=== PATIENT | male | born 1985 | race Caucasian/White ===

== ENCOUNTER 2017-02-15 18:53 | Inpatient (IN) | payer OTHER ==
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
--- NOTE | ~2017-02-15 | PN ---
Unit #: [id number] #: [id number] Patient: LILIANA TORRES [id number] [facility] [address] [place] [address] [id number] I MR#: [id number] NAME: LILIANA TORRES ROOM: [facility] Age: 31 Sex: M Admission Date: 02/15/2017 : 1985 Attending Physician: Omar Enamorado M.D. Admitting Physician: Omar Enamorado M.D. Primary Care Physician: Primary Care Physician No KERRYCE PROGRESS NOTES DATE 02/17/2017 DISCUSSION Liliana continues to have active withdrawal symptoms today. These include sweating, cramping and nausea. He is alert and fully oriented. His memory and concentration are fair to good. His thought processes are goal directed with no active psychosis or suicidal ideation. ASSESSMENT Opiate dependence. PLAN Continue detox protocol. Dictated by... Omar Enamorado M.D. [facility]/bud TD: 03/21/2017 14:11 JOB #: [id number] [facility] PROGRESS NOTES Page 1 of 1 X Omar Enamorado MD X PROGRESS NOTE
--- NOTE | ~2017-02-15 | PN ---
Unit #: [id number] #: [id number] Patient: LILIANA TORRES [id number] [facility] [address] [place] [address] [id number] I MR#: [id number] NAME: LILIANA TORRES ROOM: [facility] Age: 31 Sex: M Admission Date: 02/15/2017 : 1985 Attending Physician: Omar Enamorado M.D. Admitting Physician: Omar Enamorado M.D. Primary Care Physician: Primary Care Physician No RADHA PROGRESS NOTES DATE 02/18/2017 DISCUSSION Liliana continues to have detox symptoms although they are improved from yesterday. He is less anxious and irritable with a congruent affect. He is alert and fully oriented with no psychosis and no suicidal ideation. ASSESSMENT Opioid dependence. PLAN Anticipate discharge soon. Dictated by... Omar Enamorado M.D. [facility]/bud TD: 03/21/2017 14:13 JOB #: [id number] [facility] PROGRESS NOTES Page 1 of 1 X Omar Enamorado MD PROGRESS NOTE
--- NOTE | ~2017-02-15 | HP ---
Unit #: [id number] #: [id number] Patient: LILIANA TORRES [id number] [place] [address] [id number] I MR#: [id number] NAME: LILIANA TORRES ROOM: [facility] Age: 31 Sex: M Admission Date: 02/15/2017 : 1985 Attending Physician: Omar Enamorado M.D. Admitting Physician: Omar Enamorado M.D. Primary Care Physician: Primary Care Physician No HISTORY AND PHYSICAL HISTORY OF PRESENT ILLNESS Liliana is a 31 year old admitted to [facility] because of his poly-illicit substance abuse which includes snorting heroin. PAST MEDICAL HISTORY Long history of illicit substance abuse to include snorting heroin. PAST SURGICAL HISTORY Nothing reported. ALLERGIES Penicillin. SOCIAL HISTORY He smokes 1 pack per day. Drinks alcohol rarely. Admits to a long history of illicit drug use to include heroin. FAMILY HISTORY Medically noncontributory. REVIEW OF SYSTEMS CONSTITUTIONAL: No fever or chills. HEENT: Denies any sore throat, ear pain or runny nose. CARDIOVASCULAR: Denies chest pain, irregular heart rhythm or palpitations. CHEST: Denies shortness of breath or cough. No hemoptysis. GASTROINTESTINAL: Denies nausea, vomiting, diarrhea or chronic constipation. ENDOCRINE: Denies history of increased thirst or urination. No recent significant weight loss or gain. GENITOURINARY: Denies dysuria, frequency, or hematuria. SKIN: Denies any rashes. HEMATOLOGIC: Denies history of increased bleeding or bruising. MUSCULOSKELETAL: Denies any hot, swollen joints. No generalized muscle pain. NEUROLOGIC: Denies problems with vision or speech. No frequent, severe headaches. No numbness, tingling or weakness in any extremities. Denies loss of bladder or bowel control. CURRENT MEDICATIONS Detox protocol. PHYSICAL EXAMINATION GENERAL: Alert, well-nourished, in no apparent distress. Unit #: [id number] #: [id number] Patient: LILIANA TORRES VITAL SIGNS: Blood pressure 130/70, heart rate 80, respirations 16, temperature 98.6. WEIGHT: 325. HEIGHT: 6 feet 3 inches. SKIN: Warm and dry without rash or lesion. HEENT: Normocephalic. TMs not viewed. Oral and nasal passages clear. Conjunctivae clear. PERRLA. EOMs intact. NECK: Supple without lymphadenopathy or thyromegaly. HEART: Regular rate and rhythm without murmur. LUNGS: Clear. ABDOMEN: Soft, nontender. : Not done. EXTREMITIES: No evidence of cyanosis, clubbing or edema. Moves all without focal deficit. NEUROLOGICAL: Grossly within normal limits. Cranial Nerves: II: Visual disla are intact. III, IV AND : Extraocular movements are intact. Pupils are equal, round and reactive to light. V: Facial sensation is grossly normal. VII: Facial movements and expression are normal. VIII: Auditory acuity grossly intact. IX, X: Uvula is midline. Phonation is normal. XI: Patient shrugs shoulders and turns head normally. XII: Tongue protrudes in the midline. Sensory and Motor Function: Sensory and motor sensation is grossly normal. Motor: moves all extremities well. Coordination: Gait is normal. Deep Tendon Reflexes: Intact. IMPRESSION Psychiatric admission. RECOMMENDATIONS PSYCHIATRIC: Per psychiatrist. MEDICAL: See no contraindications to participate in facility's activities. MEDICAL PROGNOSIS Good. MEDICAL CONDITION Stable. Dictated by... Jackie Saab P.A.-C. for Sherrie Tolliver/dilma TD: 02/16/2017 21:41 JOB #: [id number] Unit #: [id number] #: [id number] Patient: LILIANA TORRES HISTORY AND PHYSICAL Page 1 of 1 X Jackie Saab HISTORY AND PHYSICAL
--- NOTE | ~2017-02-15 | DS ---
Unit #: [id number] #: [id number] Patient: ALEX TORRES [id number] [facility] [address] [place] [address] [id number] I MR#: [id number] NAME: ALEX TORRES ROOM: [facility] Age: 31 Sex: M Admission Date: 02/15/2017 : 1985 Discharge Date: 02/19/2017 Attending Physician: Omar Enamorado M.D. Primary Care Physician: Primary Care Physician No DISCHARGE SUMMARY REASON FOR ADMISSION Alex is a 31-year-old man who reports a long history of opioid dependence and recent relapse. He was using up to a gram of heroin IV daily and felt that he would " if I don't quit" although, he had no specific suicidal ideation. He was admitted for detox and stabilization. DIAGNOSTIC STUDIES LABORATORY RESULTS: Please see hospital chart. HOSPITAL COURSE The patient was admitted and placed on the opioid detox protocol. He did not require initiation of an antidepressant medication and participated appropriately in unit groups and activities. On the date of discharge, he planned to return to [place], [place] to attend programming at the [facility] and through [facility]. DISCHARGE DIAGNOSES AXIS I: Opioid dependence with withdrawal, uncomplicated, F11.23. AXIS II: No diagnosis. AXIS III: None acute. AXIS IV: AXIS V: DISCHARGE INSTRUCTIONS Follow up with the [facility]. DISCHARGE MEDICATIONS None. CONDITION AT DISCHARGE Fair. PROGNOSIS Fair. DIET AND ACTIVITY Ad marcia. Dictated by... Omar Enamorado M.D. Unit #: [id number] #: [id number] Patient: ALEX TORRES [facility]/modl TD: 03/20/2017 12:10 JOB #: [id number] DISCHARGE SUMMARY Page 1 of 1 X Omar Enamorado MD X DISCHARGE SUMMARY
[2017-02-16 12:25] LABS: BASOPHIL% 0.4 % (0-2.5); EOSINOPHIL# 0.4 X10e3 (0-0.7); EOSINOPHIL% 5.7 % (0.0-7.0); HEMATOCRIT 48.2 % (38.0-50.0); HEMOGLOBIN 15.8 gm/dL (13.0-16.0); MEAN CELL VOLUME 90.5 FL (83-96); MEAN CORPUSCULAR HEMOGLOBIN 29.7 PG (28-34); MEAN CORPUSCULAR HGB CONC 32.8 g/dL (30-36); MEAN PLATELET VOLUME 10.7 FL (6.5-11.5); MONOCYTE# 0.7 X10e3 (0-1.0); NEUTROPHIL# 4.6 X10e3 (1.5-7.1); NEUTROPHIL% 58.9 % (40-75); PLATELET COUNT 222 X10e3 (140-420); RED BLOOD COUNT 5.33 X10e (3.90-5.60); WHITE BLOOD COUNT 7.8 X10e3 (4.0-10.5)
[2017-02-16 12:34] LABS: DIFF IND NO
[2017-02-16 12:37] LABS: ALBUMIN SERUM 3.8 g/dL (3.5-5.0); BILIRUBIN,TOTAL 0.6 mg/dL (0.2-2.0); BUN/CREATININE RATIO 7.27; CALCIUM SERUM 9.6 mg/dL (8.4-10.2); CREATININE SERUM 1.1 mg/dL (0.6-1.4); GLOM FILT RATE Estimated 90.3 mL/min (>60); POTASSIUM 5.4 mmol/L (3.5-5.1); PROTEIN TOTAL SERUM 5.9 g/dL (6.0-8.3)
== END 2017-02-19 16:25 | disposition home or self-care (01) | DRG 897 ==
LOC: P1E 18:53
PROVIDERS: Psychiatry & Neurology Psychiatry
PROC: HZ2ZZZZ Detoxification Services for Substance Abuse Treatment (ICD-10-PCS; principal; 2017-02-15)
DX: F11.20 Opioid dependence, uncomplicated (principal); F11.23 Opioid dependence with withdrawal; F17.210 Nicotine dependence, cigarettes, uncomplicated; Z56.0 Unemployment, unspecified; Z59.0 Homelessness
CPT/HCPCS: 80053; 85025; 86592